=== PATIENT | female | born 1965 | race Asian ===

== ENCOUNTER → 2017-04-06 | Day surgery (SDC) | payer OTHER ==
[~2017-04-06] MED LIST: BUPIVACAINE HCL/PF 0.5% (5MG/ML) 10 ML VIAL ONE
[2017-04-06 13:35] LABS: BASO % 0.5 % (0-2.0); EOS % 0.7 % (0-4.5); HEMATOCRIT 39.1 % (32.4-45.2); LYMPH % 26.4 % (8-40); MCH 31.8 pg (25.7-33.7); MCHC 33.3 g/dl (32.0-36.0); MEAN CELL VOLUME 95.4 fl (80-96); MEAN PLT VOLUME 7.4 fl (7.5-11.1); NEUT % 66.4 % (42.8-82.8); PLATELET COUNT 188 K/MM3 (134-434); RDW 12.9 % (11.6-15.6); WHITE BLOOD COUNT 8.6 K/mm3 (4.0-10.0)
== END | disposition home or self-care (01) ==
LOC: JRADIR 13:03
PROVIDERS: ATTEND Orthopaedic Surgery Sports Medicine
PROC: BR1DYZZ Fluoroscopy of Sacroiliac Joints using Other Contrast (ICD-10-PCS; principal; 2017-04-06)
PROC: BQ01YZZ Plain Radiography of Left Hip using Other Contrast (ICD-10-PCS; 2017-04-06)
PROC: BR1DYZZ Fluoroscopy of Sacroiliac Joints using Other Contrast (ICD-10-PCS; 2017-04-06)
DX: M25.552 Pain in left hip (principal)
CPT/HCPCS: 27093; 36415; 73525-TC; 76000-TC; 84703; 85025